=== PATIENT | female | born 1955 | race Caucasian/White ===

== ENCOUNTER 2016-08-22 08:36 | Day surgery (SDC) | payer OTHER ==
--- NOTE | 2016-08-21 11:57 | HP ---
- Patient Scheduled date of Surgery: 08/22/16 Scheduled Surgical Procedure: Phacoemulsification and cataract extraction with PCIOL Affected Eye: Left Chief Complaint (Indication for surgery): Decreased vision affecting ADLs - Ocular History Other Eye History: S/p pterygium excision (R homonomous hemianopsia, opitc atrophy) Eye Medications: tobramycin qid OS Previous Eye Surgery: none - Medical History Illnesses: Anemia (gerd), Asthma, Hypertension, CVA, Renal Disease (ESRD) (s/p renal transplant), Other (epilepsy) Current Medications: asa senna mg oxide pravastatin, prednisone 5mg tacrolimus, nifedipine novolog colace keppra mycophenilate hydralazine prilosec iron amlodipine vitamin b12 nephrovite metoprolol clonidine atrovent Ocular Examination - Best Corrected Visual Acuity Distance: Right eye: 20/30 Distance: Left eye: 20/60 - External/Slit Lamp Examination Abnormalities: normal - Intraocular Pressure Intraocular Pressure - Right eye: 16 Intraocular Pressure-Left eye: 16 - Lens Lens: 2+ ns - Vitreous/Retina Vitreous/Retina: C:D 0.3 ON pallor, m/v/p wnl - Special Examination M - Right eye: +2.25-0.75 x105 M - Left eye: pl -0.75 x 75 K - Right eye: 44.75/45.50 x 015 K - Left eye: 45.50/46.75 x 165 AL - Right eye: 21.98 AL - Left eye: 21.91 IOL bag: +23.0d hoya 251 IOL sulcus: +22.0 d hoya 231 IOL AC: +19.0 d MTA 4uo - Impression Impression: Cataract Left Eye - Plan Plan: Phacoemulsification and cataract extraction - IOL Left eye Post-hospital care will be provided in office on: 08/23/16
[2016-08-21 13:50] VITALS: BMI 22.0
--- NOTE | 2016-08-21 16:58 | HP ---
History & Physical Update - History History: No Change - Physical Physical: No Change - Assessment Assessment: No Change - Plan Plan: No Change
[~2016-08-22 08:36] MED LIST: ACETAMINOPHEN 325 MG TABLET (FP) PO PRN; TOBRAMYCIN 0.3% OPHTH OINT 3.5 GM OS ONE
[2016-08-22] MEDS ORDERED: TROPICAMIDE 1% OPHTH SOLN 15 ML BOTTLE ONE (08:53)
[2016-08-22] MEDS ORDERED: PHENYLEPHRINE 2.5% OPHTH SOLN 15 ML BOTTLE ONE (08:53)
[2016-08-22] MEDS: TOBRAMYCIN 0.3% OPHTH SOLN 5 ML BOTTLE OS SCH ×3 (08:55→09:05)
[2016-08-22] MEDS: DICLOFENAC SODIUM 0.1% OPHTHALMIC 2.5ML BOTTLE OP SCH ×3 (08:55→09:25)
[2016-08-22] MEDS: TROPICAMIDE 1% OPHTH SOLN 15 ML BOTTLE OP SCH ×3 (08:55→09:05)
[2016-08-22] MEDS: PHENYLEPHRINE 2.5% OPHTH SOLN 15 ML BOTTLE OP SCH ×3 (08:55→09:05)
[2016-08-22] MEDS ORDERED: BUPIVACAINE HCL/PF 0.75% 10 ML VIAL ONE (11:03)
[2016-08-22] MEDS ORDERED: LIDOCAINE HCL/PF 2% SDV 5ML VIAL ONE ×2 (11:03→11:14)
[2016-08-22] MEDS ORDERED: LIDOCAINE HCL/PF 2% SDV 5ML VIAL INF ONE (11:36)
[2016-08-22] MEDS ORDERED: CHONDROITIN SU A/HYALUR SOD 1 KIT IO ONE (11:36)
[2016-08-22] MEDS ORDERED: BUPIVACAINE HCL/PF 0.75% 10 ML VIAL RB ONE (11:36)
[2016-08-22] MEDS ORDERED: BSS (NA/CA/MG/K) BALANCED SALT SOLUTION OPHTH SOLN 15 ML BOTTLE OS ONE (11:50)
[2016-08-22] MEDS ORDERED: EPINEPHrine/PF 1 MG/1 ML (1:1,000) AMPULE SQ ONE (11:51)
[2016-08-22] MEDS ORDERED: TOBRAMYCIN 0.3% OPHTH OINT 3.5 GM OS ONE (11:54)
[2016-08-22] MEDS ORDERED: TOBRAMYCIN/DEXAMETHASONE OPHTH. OINTMENT 1 TUBE OS ONE (11:54)
[2016-08-22 13:22] VITALS: BP 127/67; PULSE 78
--- NOTE | 2016-08-23 13:45 | OP ---
DATE OF OPERATION: PREOPERATIVE DIAGNOSIS: Cataract left eye. POSTOPERATIVE DIAGNOSIS: Cataract left eye. PROCEDURE: Phacoemulsification and cataract extraction with insertion of posterior chamber intraocular lens, left eye. SURGEON: Martha Morales MD SALES AND SERVICE TECHNICIAN: None. ANESTHESIA: Retrobulbar block. ANESTHESIOLOGIST: Dr. Paige OPERATIVE PROCEDURE: Following satisfactory intravenous sedation, the patient received local anesthesia using a 50/50 mixture of lidocaine 2% and Marcaine 0.75%. A Van Lint lid block was delivered to the left eye using 4 mL of the mixture in a retrobulbar injection using 4 mL of the mixture. The patient was then prepped and draped in the usual sterile fashion so as to expose only the left eye. The patient was prepped with chlorhexidine, and nothing was placed in the eye. The lashes were taped out of the surgical field. An eyelid speculum was placed into the left eye. A paracentesis was made in inferior clear cornea at the limbus. Viscoelastic material was instilled into the anterior chamber via the paracentesis. A 2.4-mm keratome was then used to create the main incision in temporal clear cornea at the limbus. A continuous curvilinear capsulorrhexis was performed using a cystotome and Utrata forceps. Hyrodissection of the lens cortex was performed using BSS on a cannula until the nucleus was noted to be freely rotating. The phacoemulsification tip was inserted via the main wound and used to sculpt 2 perpendicular grooves into the lens nucleus. The nucleus was cracked into 4 quadrants using 2 instruments. Each quadrant was lifted out of the capsule into the iris plane and individually phacoemulsified. The remaining cortical material was then aspirated using the irrigation and aspiration port. The capsular bag was inflated using Provisc, and a preloaded Hoya lens model 251, power +23.0 diopter was injected into the capsular bag and was centered using a Sinskey hook. The residual viscoelastic material was removed from the anterior chamber using irrigation and aspiration. The wound edges were hydrated using BSS. The wound was tested for leakage. It was found to be watertight. Therefore, Tobradex ointment was placed in the eye, and a speculum was removed from the eye, and the eyelid was closed. Sterile dressing and shield were placed over the eye, and the patient was transferred to the recovery room in stable condition and told to follow up in 1 day. MARTHA MORALES M.D. [id number]
== END 2016-08-22 13:20 ==
LOC: JASU-SURG 08:36
PROVIDERS: ATTEND Ophthalmology
PROC: 08RK3JZ Replacement of Left Lens with Synthetic Substitute, Percutaneous Approach (ICD-10-PCS; principal; 2016-08-22 10:30)
DX: H26.9 Unspecified cataract (principal)

== ENCOUNTER 2018-04-30 06:47 | Day surgery (SDC) | payer OTHER ==
--- NOTE | 2018-04-29 15:51 | HP ---
- Patient Scheduled date of Surgery: 04/30/18 Scheduled Surgical Procedure: Phacoemulsification and cataract extraction with PCIOL Affected Eye: Right Chief Complaint (Indication for surgery): Decreased vision affecting ADLs - Ocular History Other Eye History: Other (kelly, right hemianopsia) Eye Medications: tobramycin, restasis Previous Eye Surgery: s/p ce/pciol OS - Medical History Illnesses: Hypertension, Hypercholesterolemia, Diabetes, Other (MS, epilepsy, ESRD s/p renal transplant,) Current Medications: Ambulatory Orders Acetaminophen [Tylenol] 650 mg PO Q6H PRN 08/21/16 Aspirin [ASA -] 81 mg PO DAILY 08/21/16 Cyclobenzaprine HCl [Flexeril -] 10 mg PO BID 08/21/16 Docusate Sodium [Colace -] 200 mg PO HS 08/21/16 Ergocalciferol (Vitamin D2) [Vitamin D2] 2,000 unit PO DAILY 08/21/16 Famotidine [Pepcid] 20 mg PO DAILY 08/21/16 Hypromellose 0.5% Opth Soln [Artificial Tears] 1 drop OU TID 08/21/16 Ipratropium [place]igeon [Atrovent Hfa] 17 gm IH Q6H PRN 08/21/16 Lactulose 10 gm PO PRN PRN 08/21/16 Losartan Potassium 100 mg PO DAILY 08/21/16 Magnesium Oxide 400 mg PO BID 08/21/16 Mycophenolate Mofetil 500 mg PO BID 08/21/16 Oxycodone HCl/Acetaminophen [Percocet 5-325 mg Tablet] 1 tab PO Q4H 08/21/16 Oxymetazoline HCl [Nasal [place]] 30 ml NS BID PRN 08/21/16 Pravastatin Sodium [Pravachol (Nf)] 80 mg PO HS 08/21/16 Prednisone 5 mg PO DAILY 08/21/16 Sennosides [Senna] 8.6 mg PO HS 08/21/16 Tacrolimus 2 mg PO BID 08/21/16 Tobramycin 0.3% Ophth Soln [Tobrex *Ophthalmic Solution*] 1 drop OS QID levETIRAcetam [Keppra -] 500 mg PO BID 08/21/16 Allergies/Adverse Reactions: Allergies Allergy/AdvReac Type Severity Reaction Status Date / Time ciprofloxacin HCl Allergy Verified 08/22/16 09:17 [From Cipro] Fish Containing Products Allergy Verified 08/22/16 09:17 iodine Allergy Verified 08/22/16 09:17 latex Allergy Verified 08/22/16 09:17 moxifloxacin HCl Allergy Verified 08/22/16 09:17 [From Avelox] Penicillins Allergy Verified 08/22/16 09:17 vancomycin Allergy Verified 08/22/16 09:17 Ocular Examination - Best Corrected Visual Acuity Distance: Right eye: 20/40-3 Distance: Left eye: 20/60 - External/Slit Lamp Examination Abnormalities: MGD, spk inferiorly - Intraocular Pressure Intraocular Pressure - Right eye: 16 Intraocular Pressure-Left eye: 16 - Lens Lens: 2+ NS - Vitreous/Retina Vitreous/Retina: C:D 0.3 trace pallor m/v/p wnl - Special Examination M - Right eye: +2.00-0.75 x 105 M - Left eye: +0.25-0.75 x 095 K - Right eye: 44.75/45.25 x 045 K - Left eye: 46/47 x 165 AL - Right eye: 22.11 AL - Left eye: 21.45 IOL bag: +24.0 AUOOTO IOL sulcus: +23.0 [id number] IOL AC: +19.50 - Impression Impression: Cataract Right Eye - Plan Plan: Phacoemulsification and cataract extraction - IOL Right eye Post-hospital care will be provided in office on: 05/01/18
[2018-04-29 15:52] VITALS: BMI 22.1
[~2018-04-30 06:47] MED LIST changes: +BSS (NA/CA/MG/K) BALANCED SALT SOLUTION OPHTH SOLN 15 ML BOTTLE OD ONE; +CHONDROITIN SU A/HYALUR SOD 1 KIT IO ONE; +EPINEPHrine/PF 1 MG/1 ML (1:1,000) AMPULE SQ ONE; +LIDOCAINE HCL 1% PRESERVATIVE FREE - 30ML VIAL IO ONE; +LIDOCAINE HCL 2% JELLY (5 ML/TUBE) TP ONE; +POVIDONE-IODINE 5% OPHTHALMIC PREP 30 ML SOLUTION OD ONE; -TOBRAMYCIN 0.3% OPHTH OINT 3.5 GM OS ONE; +TOBRAMYCIN 0.3% OPHTH SOLN 5 ML BOTTLE OD ONE; +TOBRAMYCIN/DEXAMETHASONE OPHTH. OINTMENT 1 TUBE TP ONE; +TROPICAMIDE 1% OPHTH SOLN 15 ML BOTTLE OP SCH
[2018-04-30] MEDS ORDERED: PHENYLEPHRINE 2.5% OPHTH SOLN 15 ML BOTTLE ONE (07:03)
[2018-04-30] MEDS ORDERED: KETOROLAC TROMETHAMINE 0.5% EYE DROP 1 DROP DROPS ONE (07:04)
[2018-04-30] MEDS ORDERED: TROPICAMIDE 1% OPHTH SOLN 15 ML BOTTLE ONE (07:04)
--- NOTE | 2018-04-30 07:18 | HP ---
History & Physical Update - History History: No Change - Physical Physical: No Change - Assessment Assessment: No Change - Plan Plan: No Change (H and P reviewed from Dr. Walker 04/25/18 no changes)
[2018-04-30 07:24] VITALS: TEMP 97.8
[2018-04-30] MEDS ORDERED: PROPOFOL 20 ML ONE (09:55)
[2018-04-30] MEDS ORDERED: LIDOCAINE HCL/PF 2% SDV 5ML VIAL INF ONE (09:57)
[2018-04-30] MEDS ORDERED: BUPIVACAINE HCL/PF 0.75% 10 ML VIAL RB ONE (09:57)
[2018-04-30] MEDS ORDERED: TETRACAINE 0.5% OPHTH SOLN 2 ML BOTTLE TP ONE (09:58)
[2018-04-30] MEDS ORDERED: POVIDONE-IODINE 5% OPHTHALMIC PREP 30 ML SOLUTION OD ONE (10:01)
[2018-04-30] MEDS ORDERED: CHONDROITIN SU A/HYALUR SOD 1 KIT IO ONE (10:08)
[2018-04-30] MEDS ORDERED: BSS (NA/CA/MG/K) BALANCED SALT SOLUTION OPHTH SOLN 15 ML BOTTLE OD ONE (10:08)
[2018-04-30] MEDS ORDERED: EPINEPHrine/PF 1 MG/1 ML (1:1,000) AMPULE SQ ONE (10:12)
[2018-04-30] MEDS ORDERED: TOBRAMYCIN/DEXAMETHASONE OPHTH. OINTMENT 1 TUBE TP ONE (10:23)
--- NOTE | 2018-04-30 10:30 | OP ---
Ophthalmology Operative Note Pre-Operative Diagnosis: Cataract Affected Eye: Right Operation: Phacoemulsification and cataract extraction with PCIOL Findings: NS cataract right eye Post-Operative Diagnosis: Same as Pre-op Chief Credit Officer: None Anesthesiologist: Inge Luis MD Anesthesia: Local, Retrobulbar Specimens Removed: none Estimated blood loss: <1 cc Drains & Tubes with Location: none Operative Report Dictated: Yes
[2018-04-30] MEDS ORDERED: LIDOCAINE HCL/PF 2% SDV 5ML VIAL ONE (10:39)
[2018-04-30] MEDS ORDERED: BUPIVACAINE HCL/PF 0.75% 10 ML VIAL ONE (10:39)
[2018-04-30] MEDS ORDERED: TETRACAINE 0.5% OPHTH SOLN 2 ML BOTTLE ONE (10:40)
--- NOTE | 2018-04-30 11:55 | OP ---
DATE OF OPERATION: DATE OF DICTATION: 04/30/2018 PREOPERATIVE DIAGNOSIS: Cataract right eye. POSTOPERATIVE DIAGNOSIS: Cataract right eye. PROCEDURE: Phacoemulsification and cataract extraction with insertion of posterior chamber intraocular lens, right eye. SURGEON: Martha Morales MD MEDICAL TECH: None. ANESTHESIA: Retrobulbar block. ANESTHESIOLOGIST: Inge Luis MD OPERATIVE PROCEDURE: Following satisfactory intravenous sedation, the patient received local anesthesia using a 50/50 mixture of lidocaine 2% and Marcaine 0.75%. A Van Lint lid block was delivered to the right eye using 4 mL of the mixture and a retrobulbar injection using 2 mL of the mixture. The patient was then prepped and draped in the usual sterile fashion so as to expose only the right eye. Ophthalmic Betadine was instilled into the inferior fornix, and the lashes were taped out of the surgical field. An eyelid speculum was placed into the right eye. A paracentesis was made in superior temporal clear cornea at the limbus. Viscoelastic material was instilled into the anterior chamber via the paracentesis. A 2.4-mm keratome was then used to create the main incision in temporal clear cornea at the limbus. A continuous curvilinear capsulorrhexis was performed using a cystotome and Utrata forceps. Hyrodissection of the lens cortex was performed using BSS on a cannula until the nucleus was noted to be freely rotating. The phacoemulsification tip was then inserted via the main wound and used to sculpt 2 perpendicular grooves into the lens nucleus. The nucleus was cracked into 4 quadrants. Each quadrant was lifted out of the capsule into the iris plane and individually phacoemulsified. The remaining cortical material was then aspirated using the irrigation and aspiration port. The capsular bag was inflated using Provisc, and a preloaded AcrySof lens model [id number] power +24.0 diopter was injected into the capsular bag and centered using a Sinskey hook. The residual viscoelastic material was removed from the anterior chamber using irrigation and aspiration. The wound edges were hydrated using BSS. The wound was tested for leakage and found to be watertight. Tobradex ointment was placed in the eye, and the speculum was removed from the eye. Sterile dressing and shield were placed over the eye, and the patient was transferred to the recovery room in stable condition and told to follow up in 1 day. MARTHA MORALES M.D. [id number]
[2018-04-30 12:42] VITALS: BP 135/76; PULSE 70
[2018-04-30] MEDS ORDERED: KETOROLAC TROMETHAMINE 0.5% EYE DROP 1 DROP DROPS OP SCH (16:00)
[2018-04-30] MEDS ORDERED: PHENYLEPHRINE 2.5% OPHTH SOLN 15 ML BOTTLE OP SCH (16:00)
== END 2018-04-30 12:45 ==
LOC: JASU-SURG 06:47
PROVIDERS: ATTEND Ophthalmology
PROC: 08RJ3JZ Replacement of Right Lens with Synthetic Substitute, Percutaneous Approach (ICD-10-PCS; principal; 2018-04-30 08:30)
DX: H26.9 Unspecified cataract (principal)